=== PATIENT | male | born 1980 | race African-American/Black ===

== ENCOUNTER 2021-11-04 21:11 | Emergency (ER) | payer OTHER, SELFPAY ==
--- NOTE | ~2021-11-04 | XR_ITS ---
EXAMINATION: XR chest 1V portable Exam Date/Time: 11/04/2021 22:20 CDT HISTORY: chest pain,SOB, NO CARDIAC HX Comparison: 09/20/2008. RESULT: Lines, tubes, and devices: None. Lungs and pleura: Clear. Cardiomediastinal silhouette: Stable. Other: No acute osseous or upper abdominal finding. IMPRESSION: No acute cardiopulmonary process. Reviewed, dictated and finalized at location K.
--- NOTE | 2021-11-04 21:22 | ECG_ITS ---
Measurements Intervals [place] Rate: 104 P: 36 DE: 201 QRS: 17 QRSD: 93 T: -6 QT: 316 QTc: 417 Interpretive Statements SINUS TACHYCARDIA BORDERLINE AV CONDUCTION DELAY ANTEROSEPTAL INFARCT, AGE INDETERMINATE BORDERLINE ST-T WAVE ABNORMALITY- INFERIOR LEADS BASELINE ARTIFACT- I, II, AVR, AVL ABNORMAL ECG Electronically Signed On 11-05-2021 7:27:38 CDT by Luis Gardner D.O.
[2021-11-04 21:27] VITALS: BP 158/96; PULSE 100; RESP 18; TEMP 36.9; O2SAT 98
[2021-11-04 21:29] VITALS: PULSE 102
[2021-11-04 21:40] LABS: Basophils Absolute Auto 0.1 K/mm3 (0.0-0.1); Eosinophils Absolute Auto 0.2 K/mm3 (0-0.3); Eosinophils Percent Auto 2.6 % (0-4.4); Hematocrit 45.6 % (42.0-52.0); Lymphocytes Absolute Auto 4.02 K/mm3 (0.9-3.2); Lymphocytes Percent Auto 65.7 % (18.3-44.2); Mean Corpuscular HGB Conc 32.9 g/dl (32-36); Mean Corpuscular Hemoglobin 27.5 pg (26-34); Mean Corpuscular Volume 83.5 fl (80-100); Mean Platelet Volume 9.3 fl (7.4-10.4); Monocytes Absolute Auto 0.3 K/mm3 (0.1-0.6); Monocytes Percent Auto 4.9 % (2.6-8.5); Neutrophils Absolute Auto 1.6 K/mm3 (1.3-6.7); Neutrophils Percent Auto 25.8 % (45.5-73.1); Platelet Count Result 319 k/mm3 (150-375); Red Blood Count 5.46 M/mm3 (4.6-6.20); Red Cell Distribution Width 12.7 % (11.5-14.5); White Blood Count 6.1 K/mm3 (4.5-10.0)
[2021-11-04 21:48] LABS: Alanine Aminotransferase 27 U/L (6-50); Albumin Level 4.7 g/dL (3.5-5.1); Alkaline Phosphatase 63 U/L (38-126); Anion Gap 13 mmol/L (8-16); Aspartate Amino Transferase 36 U/L (17-59); Bilirubin,Total 0.9 mg/dL (0.2-1.3); Blood Urea Nitrogen 14 mg/dL (9-20); Calcium 9.5 mg/dL (8.4-10.2); Carbon Dioxide 25 mmol/L (22-30); Chloride 103 mmol/L (98-107); Estimated CRCL calculation 75 ml/min; Estimated Glomerular Filt Rate > 60; Glucose 96 mg/dL (65-110); Lipase 46 U/L (23-300); Potassium 3.3 mmol/L (3.4-5.0); Sodium 141 mmol/L (137-145)
[2021-11-04 21:50] LABS: INR 0.9
[2021-11-04 22:00] LABS: Troponin I < 0.012 ng/mL (0.000-0.034)
--- NOTE | 2021-11-04 22:51 | ED.CHESTPAIN ---
HPI - Chest Pain General Chief Complaint: Chest Pain Stated Complaint: Chest pain Time Seen by Provider: 11/04/21 21:22 History of Present Illness HPI narrative: 41-year-old male presenting with intermittent chest pain that started yesterday while he was at rest, he has not had symptoms like this in the past, and states that it feels kind of like some pressure in the left chest, it does not radiate, no difficulty breathing, no recent cough, no diaphoresis or nausea or vomiting. It does not feel like his usual asthma. No family history of cardiac disease. Related Data Allergies Allergy/AdvReac Type Severity Reaction Status Date / Time NKDA Allergy Mild Unknown Uncoded 11/04/21 21:32 Review of Systems Review of Systems: CONST: No fever. HEENT: No sore throat C/V: Chest pain RESP: No cough GI: No nausea or vomiting : No dysuria. M/S: No joint pain. SKIN: No rash. NEURO: [No headache or focal numbness or weakness] PSYCH: [No depression] FOR[facility]LY [facility] Past Medical History Medical History (Updated 11/05/21 @ 04:42 by Dottie Agrawal MD) Hypertension Social History Social History (Updated 11/05/21 @ 04:42 by Dottie Agrawal MD) Smoking status: Never smoker Exam Narrative: EXAMINATION OF ORGAN SYSTEMS/BODY AREAS: Constitutional: Vital signs per nursing GENERAL:[No acute distress, non-toxic appearing.] HEAD: Normal with no signs of head trauma. EYES: EOMI, conjunctiva normal ENT: Hearing grossly intact LUNGS: Nonlabored breathing. HEART: [Regular rate and rhythm] ABD: [Soft], [nontender to palpation] EXT: Normal range of motion SKIN: [No rashes or lesions.] NEURO: [Alert and oriented x 3. No gross focal sensory or strength deficits.] PSYCH: Normal affect Course Vital Signs Vital signs: Vital Signs Temperature 98.4 F 11/04/21 21:27 Pulse Rate 100 11/04/21 21:27 Respiratory Rate 18 11/04/21 21:27 Blood Pressure 158/96 H 11/04/21 21:27 Pulse Oximetry 98 11/04/21 21:27 Oxygen Delivery Room Air 11/04/21 21:27 Temperature 98.4 F 11/04/21 21:27 Pulse Rate 75 11/05/21 00:04 Respiratory Rate 20 11/05/21 00:04 Blood Pressure 136/92 H 11/05/21 00:04 Pulse Oximetry 99 11/05/21 00:04 Oxygen Delivery Room Air 11/04/21 21:27 MDM - Chest Pain MDM Narrative Medical decision making narrative: ED COURSE AND MEDICAL DECISION MAKINyoM presenting with chest pain. EKG done in triage negative for acute ischemic changes. Cardiac workup is initiated. EKG: Performed in triage and interpreted by me. Normal sinus rhythm. Rate 104. Normal axis. MS normal. QRS duration normal. QTc normal. No pathologic Q waves. No ST segment elevation or depression to suggest acute ischemia. No RV strain pattern. HEART score is 1 with no acute ischemic changes on EKG and negative troponin making ACS unlikely. Wells low risk with negative d-dimer making PE unlikely. Presentation not consistent with dissection or aneurysm without radiation of pain or pulse deficits. CXR negative for mediastinal widening. No abdominal pain or signs of sepsis that would be concerning for esophageal perforation or mediastinitis. No cardiomegaly or JVD to suggest pericardial effusion/tamponade. HEART Score: 1. (Risk of major adverse cardiac events over 6 weeks: Score of 0-3 is low risk <2% ; Score of 4-6 is moderate risk ~12-15%; Score of 7-12 is high risk ~50%). On repeat evaluation just prior to discharge, the patient is no acute distress, his pain has improved. I had a long discussion with the patient and with shared decision making, [he] is comfortable with outpatient management. [He] was given clear return instructions by myself in person as well as on discharge paperwork. I will start him on BP meds also as he is not on anything and has been told he had HTN; risks of HTN explained including CVA, IA, CKD. Procedures: Pulse oximetry interpretation - not hypoxic. EKG interpretation. Review of medical records. DISPOSITION:
[2021-11-04 23:11] VITALS: BP 135/96; PULSE 79; RESP 17; O2SAT 99
[2021-11-04] MEDS: KETOROLAC 15 MG/ML VIAL (*BKC) IV PUSH (23:13)
[2021-11-05 00:04] VITALS: BP 136/92; PULSE 75; RESP 20; O2SAT 99
== END 2021-11-05 00:06 | disposition home or self-care (01) ==
PROVIDERS: Emergency Medicine; Emergency Provider Emergency Medicine
DX: R07.89 Other chest pain (principal); I10 Essential (primary) hypertension; R00.0 Tachycardia, unspecified; R94.31 Abnormal electrocardiogram [ECG] [EKG]
CPT/HCPCS: 36415; 71045; 80053; 83690; 84484; 85025; 85380; 85610; 85730; 93005; 99284; J1885